=== PATIENT | female | born 1945 | race African-American/Black ===

== ENCOUNTER 2021-07-04 22:49 | Inpatient (IN) | payer MEDICARE, OTHER ==
[2021-07-05] MEDS ORDERED: Ondansetron PF 4 MG/2 ML Vial IVP PRN (00:07)
[2021-07-05 00:08] LABS: Actual Bicarbonate (HCO3a) 43.9 mEq/L (22-28); Base Excess (BEa) 10.2 mEq/L (-2.0 to +3.0); Calcium, Ionized (arterial) 1.22 mmol/L (1.12-1.30); Carboxyhemoglobin (COHb) 1.3 gm% (0.0-3.0); Hemoglobin (Hb) 11.5 g/dL (12.0-16.0); O2 Tension (PaO2), arterial 274.6 mmHg (> 70.0); Potassium - ABG Lab 3.67 mmol/L (3.70-5.30)
[2021-07-05] MEDS ORDERED: Morphine 4 MG/ML VIAL SLOW IVP PRN (00:15)
[2021-07-05] MEDS ORDERED: Ventilator Sedation Protocol 1 EACH FS SCH (00:15)
[2021-07-05] MEDS ORDERED: Fentanyl CADD 100 ML IV SCH (00:15)
[2021-07-05] MEDS ORDERED: Fentanyl BOLUS 250 ML IVPB PRN (00:15)
[2021-07-05] MEDS ORDERED: Lorazepam 2 MG/ML VIAL SLOW IVP PRN (00:15)
[2021-07-05] MEDS ORDERED: Propofol BOLUS 1,000 MG/100 ML VIAL IV PRN (00:15)
[2021-07-05] MEDS ORDERED: DISCONTINUE PREVIOUS NARCOTIC PAIN MEDICATIONS AND BENZODIAZEPINES FS SCH (00:15)
[2021-07-05] MEDS ORDERED: Propofol 1,000 MG/100 ML VIAL IV PRN (00:15)
[2021-07-05] MEDS ORDERED: Morphine 2 MG/ML VIAL SLOW IVP PRN (00:18)
[2021-07-05] MEDS ORDERED: fentaNYL Citrate-0.9 % NaCl/PF 100 ML IV SCH (00:30)
[2021-07-05] MEDS ORDERED: methylPREDNISolone Sod Succ/PF 125 MG/2 ML VIAL IVP SCH (00:30)
[2021-07-05 00:52] LABS: pH, Arterial 7.11 (7.35-7.45)
[2021-07-05 00:53] LABS: ALV-art Gradient 261.525 mmHg (0-20); CO2 Tension 141.5 mmHg (35.0-45.0); Puncture Site LRA
[2021-07-05] MEDS: Cefepime 1 GM in Sodium Chloride 0.9% 100 ML IVPB SCH ×2 (01:01→12:26)
[2021-07-05 01:34] LABS: Actual Bicarbonate (HCO3a) 31.7 mEq/L (22-28); Base Excess (BEa) 6.8 mEq/L (-2.0 to +3.0); CO2 Tension 46.6 mmHg (35.0-45.0); Calcium, Ionized (arterial) 1.09 mmol/L (1.12-1.30); Hemoglobin (Hb) 10.5 g/dL (12.0-16.0); O2 Tension (PaO2), arterial 168.3 mmHg (> 70.0); Potassium - ABG Lab 3.62 mmol/L (3.70-5.30); pH, Arterial 7.45 (7.35-7.45)
[2021-07-05 01:59] LABS: Puncture Site LRA
[2021-07-05 02:06] LABS: Amphetamine Not Detected (NotDetected); Barbiturates Screen Not Detected (NotDetected); Benzodiazepine Screen Not Detected (NotDetected); Cocaine Metabolite Screen Not Detected (NotDetected); Methadone Not Detected (NotDetected); Methamphetamine Not Detected (NotDetected); Opiate Screen Not Detected (NotDetected); Oxycodone Screen Not Detected (NotDetected); Phencyclidine (PCP) Not Detected (NotDetected); THC/Cannabinoid Screen Not Detected (NotDetected); Tricyclic Screen Not Detected (NotDetected)
[2021-07-05 03:59] LABS: #Lymphocytes 0.6 thou/uL (1.20-3.40); #Monocytes 0.4 thou/uL (0.11-0.59); #Neutrophils 2.9 thou/uL (1.40-6.50); %Lymphocytes 14.5 % (21.0-51.0); %Monocytes 9.3 % (0.0-10.0); %Neutrophils 76.2 % (42.0-75.0); Hemoglobin 10.6 g/dL (12.0-16.0); Mean Corpuscular HGB CONC 29.9 g/dL (32.0-36.0); Mean Corpuscular Hemoglobin 31.2 pg (27.0-31.0); Mean Platelet Volume 7.5 fL (7.4-10.4); Platelet Count 250 thou/uL (130-400); RBC Distribution Width 19.1 % (11.5-14.5); Red Blood Cell (RBC) Count 3.38 mill/uL (4.20-5.40); White Blood Cell (WBC) Count 3.8 thou/uL (4.8-10.8)
[2021-07-05 04:27] LABS: ALT (SGPT) 23 U/L (8-55); AST (SGOT) 25 U/L (5-34); Albumin 2.9 g/dL (3.4-4.8); Alkaline Phosphatase 57 U/L (40-110); Anion Gap 21 mmol/L (10-20); BUN (Urea Nitrogen) 18 mg/dL (9.8-20.1); Bilirubin, Total 0.9 mg/dL (0.2-1.2); Calc. Creatinine Clearance 30 mL/min (70-130); Calcium 8.9 mg/dL (7.8-10.44); Carbon Dioxide 28 mmol/L (23-31); Chloride 96 mmol/L (98-107); Globulin 4.8 g/dL (2.4-3.5); Glucose 105 mg/dL (83-110); Magnesium 1.7 mg/dL (1.6-2.6); Potassium 4.2 mmol/L (3.5-5.1); Protein, Total 7.7 g/dL (5.8-8.1); Sodium 141 mmol/L (136-145)
[2021-07-05] MEDS: methylPREDNISolone Sod Succ 40 MG VIAL IVP SCH ×3 (05:34→17:59)
[2021-07-05] MEDS ORDERED: Sodium Chloride 0.9% 1,000 ML IV SCH ×2 (06:00→09:28)
[2021-07-05] MEDS: Enoxaparin Sodium 30 MG/0.3 ML SYRINGE SC SCH (08:37)
[2021-07-05] MEDS: Famotidine 20 MG TAB PO SCH ×2 (08:38→20:45)
[2021-07-05] MEDS: Acetaminophen 325 MG TAB PO PRN (08:38)
[2021-07-05] MEDS: Azithromycin 250 MG in Sodium Chloride 0.9% 250 ML 250 ML IVPB SCH (10:35)
[2021-07-05] MEDS ORDERED: Alendronate Sodium 70 mg Tablet PO SCH (12:00)
[2021-07-05] MEDS ORDERED: Lactated Ringer's 500 ML IV SCH (13:30)
[2021-07-05] MEDS ORDERED: Succinylcholine 200 MG/10 ml SYRINGE FS ONE (13:41)
[2021-07-05] MEDS: Sodium Chloride 0.9% 1,000 ML IV SCH (14:25)
[2021-07-05] MEDS: Atorvastatin Calcium 10 MG TAB PO SCH (20:45)
[2021-07-05] MEDS ORDERED: Simvastatin 20 MG TAB PO SCH (21:00)
[2021-07-06] MEDS: methylPREDNISolone Sod Succ 40 MG VIAL IVP SCH ×4 (00:15→20:05)
[2021-07-06] MEDS: Cefepime 1 GM in Sodium Chloride 0.9% 100 ML IVPB SCH (00:21)
[2021-07-06] MEDS: Sodium Chloride 0.9% 1,000 ML IV SCH ×2 (03:31→14:01)
[2021-07-06 04:30] LABS: ALT (SGPT) 17 U/L (8-55); AST (SGOT) 19 U/L (5-34); Albumin 2.5 g/dL (3.4-4.8); Alkaline Phosphatase 54 U/L (40-110); Anion Gap 12 mmol/L (10-20); BUN (Urea Nitrogen) 36 mg/dL (9.8-20.1); Bilirubin, Total 0.4 mg/dL (0.2-1.2); Calc. Creatinine Clearance 25 mL/min (70-130); Calcium 7.9 mg/dL (7.8-10.44); Carbon Dioxide 28 mmol/L (23-31); Chloride 102 mmol/L (98-107); Globulin 4.4 g/dL (2.4-3.5); Glucose 173 mg/dL (83-110); Magnesium 1.7 mg/dL (1.6-2.6); Potassium 3.6 mmol/L (3.5-5.1); Protein, Total 6.9 g/dL (5.8-8.1); Sodium 138 mmol/L (136-145)
[2021-07-06 04:36] LABS: Band 23 % (5-11); Lymphocytes 4 % (21-51); MDiff Complete? YES; Macrocytosis SLIGHT = 6-15 cells (100X) (0-5/hpf); Monocytes 10 % (0-10); Neutrophil 61 % (42-75); Platelet Morphology Comment Appears Adequate; Reactive Lymphocytes 2 % (0-10)
[2021-07-06 04:37] LABS: Hemoglobin 8.9 g/dL (12.0-16.0); Mean Corpuscular HGB CONC 29.8 g/dL (32.0-36.0); Mean Corpuscular Hemoglobin 30.4 pg (27.0-31.0); Mean Platelet Volume 7.7 fL (7.4-10.4); Platelet Count 253 thou/uL (130-400); RBC Distribution Width 19.8 % (11.5-14.5); Red Blood Cell (RBC) Count 2.92 mill/uL (4.20-5.40); White Blood Cell (WBC) Count 6.3 thou/uL (4.8-10.8)
[2021-07-06] MEDS: Famotidine 20 MG TAB PO SCH (08:26)
[2021-07-06] MEDS: Enoxaparin Sodium 30 MG/0.3 ML SYRINGE SC SCH (08:26)
[2021-07-06] MEDS: Ferrous Sulfate 325 MG TAB PO SCH (08:26)
[2021-07-06] MEDS ORDERED: Non-Formulary Item 1 EACH (Ferrous Sulfate [Ferrous Sulfate] 325 MG Tablet) PO SCH (09:00)
[2021-07-06] MEDS: Azithromycin 250 MG in Sodium Chloride 0.9% 250 ML 250 ML IVPB SCH (13:48)
[2021-07-06] MEDS: Atorvastatin Calcium 10 MG TAB PO SCH (20:05)
[2021-07-06] MEDS: Acetaminophen 325 MG TAB PO PRN (20:08)
[2021-07-07 03:53] LABS: #Lymphocytes 0.4 thou/uL (1.20-3.40); #Monocytes 0.3 thou/uL (0.11-0.59); %Lymphocytes 7.2 % (21.0-51.0); %Monocytes 4.4 % (0.0-10.0); %Neutrophils 88.4 % (42.0-75.0); Hemoglobin 9.3 g/dL (12.0-16.0); Mean Corpuscular HGB CONC 29.9 g/dL (32.0-36.0); Mean Corpuscular Hemoglobin 30.6 pg (27.0-31.0); Mean Platelet Volume 7.4 fL (7.4-10.4); Platelet Count 268 thou/uL (130-400); RBC Distribution Width 19.8 % (11.5-14.5); Red Blood Cell (RBC) Count 3.05 mill/uL (4.20-5.40); White Blood Cell (WBC) Count 5.7 thou/uL (4.8-10.8)
[2021-07-07 04:05] LABS: ALT (SGPT) 18 U/L (8-55); AST (SGOT) 16 U/L (5-34); Albumin 2.7 g/dL (3.4-4.8); Alkaline Phosphatase 51 U/L (40-110); Anion Gap 13 mmol/L (10-20); BUN (Urea Nitrogen) 33 mg/dL (9.8-20.1); Bilirubin, Total 0.3 mg/dL (0.2-1.2); Calc. Creatinine Clearance 38 mL/min (70-130); Calcium 7.9 mg/dL (7.8-10.44); Carbon Dioxide 26 mmol/L (23-31); Chloride 106 mmol/L (98-107); Globulin 4.5 g/dL (2.4-3.5); Glucose 115 mg/dL (83-110); Magnesium 1.9 mg/dL (1.6-2.6); Potassium 4.1 mmol/L (3.5-5.1); Protein, Total 7.2 g/dL (5.8-8.1); Sodium 141 mmol/L (136-145)
[2021-07-07] MEDS: Sodium Chloride 0.9% 1,000 ML IV SCH (06:10)
[2021-07-07] MEDS ORDERED: Famotidine 20 MG TAB PO SCH (09:00)
[2021-07-07] MEDS: Enoxaparin Sodium 30 MG/0.3 ML SYRINGE SC SCH (09:41)
[2021-07-07] MEDS: Ferrous Sulfate 325 MG TAB PO SCH (09:41)
[2021-07-07] MEDS: Azithromycin 250 MG in Sodium Chloride 0.9% 250 ML 250 ML IVPB SCH (09:42)
[2021-07-07] MEDS: methylPREDNISolone Sod Succ 40 MG VIAL IVP SCH ×2 (09:42→20:22)
[2021-07-07] MEDS ORDERED: methylPREDNISolone Sod Succ 40 MG VIAL IVP SCH (11:00)
[2021-07-07] MEDS: Acetaminophen 325 MG TAB PO PRN (11:55)
[2021-07-07] MEDS ORDERED: hydrALAZINE 20 MG/ML VIAL SLOW IVP PRN (15:41)
[2021-07-07] MEDS: Atorvastatin Calcium 10 MG TAB PO SCH (20:22)
[2021-07-08] MEDS: methylPREDNISolone Sod Succ 40 MG VIAL IVP SCH ×2 (09:15→21:00)
[2021-07-08] MEDS: Ferrous Sulfate 325 MG TAB PO SCH (09:15)
[2021-07-08] MEDS: Enoxaparin Sodium 30 MG/0.3 ML SYRINGE SC SCH (09:16)
[2021-07-08] MEDS: Azithromycin 250 MG in Sodium Chloride 0.9% 250 ML 250 ML IVPB SCH (09:20)
[2021-07-08 14:20] VITALS: BMI 14.4
[2021-07-08] MEDS: Acetaminophen 325 MG TAB PO PRN (16:57)
[2021-07-08] MEDS: Atorvastatin Calcium 10 MG TAB PO SCH (21:00)
[2021-07-09 06:50] LABS: #Monocytes 0.8 thou/uL (0.11-0.59); #Neutrophils 4.9 thou/uL (1.40-6.50); %Basophils 0.4 % (0.0-1.0); %Eosinophils 0.1 % (0.0-10.0); %Lymphocytes 14.9 % (21.0-51.0); %Neutrophils 72.6 % (42.0-75.0); Hemoglobin 9.9 g/dL (12.0-16.0); Mean Corpuscular HGB CONC 29.5 g/dL (32.0-36.0); Mean Platelet Volume 7.6 fL (7.4-10.4); Platelet Count 253 thou/uL (130-400); RBC Distribution Width 19.6 % (11.5-14.5); Red Blood Cell (RBC) Count 3.29 mill/uL (4.20-5.40); White Blood Cell (WBC) Count 6.7 thou/uL (4.8-10.8)
[2021-07-09 06:57] LABS: Anion Gap 10 mmol/L (10-20); BUN (Urea Nitrogen) 19 mg/dL (9.8-20.1); Calc. Creatinine Clearance 54 mL/min (70-130); Calcium 8.3 mg/dL (7.8-10.44); Carbon Dioxide 30 mmol/L (23-31); Chloride 107 mmol/L (98-107); Glucose 86 mg/dL (83-110); Potassium 3.9 mmol/L (3.5-5.1); Sodium 143 mmol/L (136-145)
[2021-07-09] MEDS: Ferrous Sulfate 325 MG TAB PO SCH (09:38)
[2021-07-09] MEDS: methylPREDNISolone Sod Succ 40 MG VIAL IVP SCH ×2 (09:38→22:21)
[2021-07-09] MEDS: Enoxaparin Sodium 30 MG/0.3 ML SYRINGE SC SCH (09:38)
[2021-07-09] MEDS: Azithromycin 250 MG in Sodium Chloride 0.9% 250 ML 250 ML IVPB SCH (09:42)
[2021-07-09] MEDS: Atorvastatin Calcium 10 MG TAB PO SCH (22:21)
[2021-07-10 06:36] LABS: Mean Corpuscular HGB CONC 29.3 g/dL (32.0-36.0); Mean Corpuscular Hemoglobin 30.1 pg (27.0-31.0); Mean Platelet Volume 7.5 fL (7.4-10.4); Platelet Count 229 thou/uL (130-400); Red Blood Cell (RBC) Count 3.31 mill/uL (4.20-5.40); White Blood Cell (WBC) Count 5.2 thou/uL (4.8-10.8)
[2021-07-10 06:45] LABS: Anion Gap 11 mmol/L (10-20); BUN (Urea Nitrogen) 14 mg/dL (9.8-20.1); Calc. Creatinine Clearance 56 mL/min (70-130); Calcium 8.4 mg/dL (7.8-10.44); Carbon Dioxide 35 mmol/L (23-31); Chloride 100 mmol/L (98-107); Glucose 125 mg/dL (83-110); Sodium 142 mmol/L (136-145)
[2021-07-10 07:12] LABS: #Lymphocytes 0.6 thou/uL (1.20-3.40); #Monocytes 0.3 thou/uL (0.11-0.59); #Neutrophils 4.3 thou/uL (1.40-6.50); %Basophils 0.3 % (0.0-1.0); %Eosinophils 0.2 % (0.0-10.0); %Lymphocytes 10.6 % (21.0-51.0); %Monocytes 6.1 % (0.0-10.0); %Neutrophils 82.8 % (42.0-75.0)
[2021-07-10] MEDS: methylPREDNISolone Sod Succ 40 MG VIAL IVP SCH (07:50)
[2021-07-10] MEDS: Enoxaparin Sodium 30 MG/0.3 ML SYRINGE SC SCH (07:50)
[2021-07-10] MEDS: Ferrous Sulfate 325 MG TAB PO SCH (07:50)
[2021-07-10 08:26] VITALS: BP 152/78; TEMP 97.4
[2021-07-10] MEDS ORDERED: predniSONE 20 MG TAB PO SCH (09:00)
== END 2021-07-10 14:53 | DRG 208 ==
LOC: CCU 07-05 00:03 → T4-B 07-07 12:38
PROVIDERS: ADMIT Internal Medicine; ATTEND Internal Medicine
PROC: 5A1935Z Respiratory Ventilation, Less than 24 Consecutive Hours (ICD-10-PCS; principal; 2021-07-05)
PROC: 0BH17EZ Insertion of Endotracheal Airway into Trachea, Via Natural or Artificial Opening (ICD-10-PCS; 2021-07-05)
PROC: 5A09357 Assistance with Respiratory Ventilation, Less than 24 Consecutive Hours, Continuous Positive Airway Pressure (ICD-10-PCS; 2021-07-06)
PROC: 0DH67UZ Insertion of Feeding Device into Stomach, Via Natural or Artificial Opening (ICD-10-PCS; 2021-07-08)
PROC: 3E0G76Z Introduction of Nutritional Substance into Upper GI, Via Natural or Artificial Opening (ICD-10-PCS; 2021-07-08)
DX: J96.21 Acute and chronic respiratory failure with hypoxia (principal); G93.41 Metabolic encephalopathy; J44.1 Chronic obstructive pulmonary disease with (acute) exacerbation; E87.2 Acidosis; R64 Cachexia; Z68.1 Body mass index [BMI] 19.9 or less, adult; Z20.822 Contact with and (suspected) exposure to COVID-19; J96.22 Acute and chronic respiratory failure with hypercapnia; I10 Essential (primary) hypertension; E78.5 Hyperlipidemia, unspecified; D50.9 Iron deficiency anemia, unspecified; E88.09 Other disorders of plasma-protein metabolism, not elsewhere classified; Z88.5 Allergy status to narcotic agent; Z78.1 Physical restraint status; Z79.899 Other long term (current) drug therapy; Z79.51 Long term (current) use of inhaled steroids; Z83.3 Family history of diabetes mellitus; Z98.890 Other specified postprocedural states; Z87.891 Personal history of nicotine dependence
CPT/HCPCS: 36415; 36600; 71045; 74018; 80048; 80053; 80306; 82805; 83735; 85025; 87040; 94002; 94003; 94640; 94660; J0456; J0692; J1650; J2060; J2704; J2920; J2930; J3490; J7050; J7120; J7512; J7620

== ENCOUNTER 2021-07-30 13:45 | Emergency (ER) | payer MEDICARE, OTHER ==
[2021-07-30 14:46] LABS: #Lymphocytes 1.2 thou/uL (1.20-3.40); #Monocytes 0.3 thou/uL (0.11-0.59); #Neutrophils 2.4 thou/uL (1.40-6.50); %Eosinophils 0.3 % (0.0-10.0); %Lymphocytes 30.1 % (21.0-51.0); %Monocytes 7.9 % (0.0-10.0); %Neutrophils 61.7 % (42.0-75.0); Hemoglobin 10.5 g/dL (12.0-16.0); Mean Corpuscular HGB CONC 29.9 g/dL (32.0-36.0); Mean Corpuscular Hemoglobin 32.3 pg (27.0-31.0); Mean Platelet Volume 7.6 fL (7.4-10.4); Platelet Count 273 thou/uL (130-400); RBC Distribution Width 20.9 % (11.5-14.5); Red Blood Cell (RBC) Count 3.27 mill/uL (4.20-5.40); White Blood Cell (WBC) Count 3.8 thou/uL (4.8-10.8)
[2021-07-30 15:05] LABS: Anisocytosis SLIGHT = 6-15 cells (100X) (0-5/hpf); Basophilic Stippling SLIGHT = 1-2 cells (100X) (None Seen); Hypochromia SLIGHT = 6-15 cells (100X) (0-5/hpf); MDiff Complete? YES; Macrocytosis SLIGHT = 6-15 cells (100X) (0-5/hpf); Ovalocytes SLIGHT = 2-5 cells (100X) (0-1/hpf); Platelet Morphology Comment Appears Adequate; Polychromasia SLIGHT = 2-3 cells (100X) (0-2/hpf)
[2021-07-30 15:21] LABS: ALT (SGPT) 28 U/L (8-55); AST (SGOT) 20 U/L (5-34); Alkaline Phosphatase 54 U/L (40-110); Anion Gap 16 mmol/L (10-20); BUN (Urea Nitrogen) 15 mg/dL (9.8-20.1); Bilirubin, Total 0.3 mg/dL (0.2-1.2); Calc. Creatinine Clearance 0 mL/min (70-130); Carbon Dioxide 33 mmol/L (23-31); Chloride 99 mmol/L (98-107); Glucose 89 mg/dL (83-110); Sodium 143 mmol/L (136-145)
[2021-07-30] MEDS ORDERED: Furosemide 40 MG TAB ONE (16:12)
[2021-07-30] MEDS ORDERED: Polyethylene Glycol 3350 17 GM Packet PO SCH (17:45)
== END 2021-07-30 17:00 | disposition home or self-care (01) ==
LOC: ERS 13:45
DX: R60.0 Localized edema (principal); D64.9 Anemia, unspecified; I10 Essential (primary) hypertension; J44.9 Chronic obstructive pulmonary disease, unspecified; E78.5 Hyperlipidemia, unspecified; Z79.51 Long term (current) use of inhaled steroids; Z79.899 Other long term (current) drug therapy
CPT/HCPCS: 36415; 71045; 80053; 83880; 84484; 85025; 93005

== ENCOUNTER 2021-12-10 12:00 | Emergency (ER) | payer OTHER ==
[2021-12-10 13:19] LABS: #Lymphocytes 1.1 thou/uL (1.20-3.40); #Monocytes 0.4 thou/uL (0.11-0.59); #Neutrophils 4.5 thou/uL (1.40-6.50); %Basophils 0.5 % (0.0-1.0); %Eosinophils 0.1 % (0.0-10.0); %Lymphocytes 18.8 % (21.0-51.0); %Monocytes 6.9 % (0.0-10.0); %Neutrophils 73.8 % (42.0-75.0); Hemoglobin 11.3 g/dL (12.0-16.0); Mean Corpuscular HGB CONC 31.8 g/dL (32.0-36.0); Mean Corpuscular Hemoglobin 32.6 pg (27.0-31.0); Mean Platelet Volume 7.7 fL (7.4-10.4); Platelet Count 304 thou/uL (130-400); RBC Distribution Width 19.2 % (11.5-14.5); Red Blood Cell (RBC) Count 3.46 mill/uL (4.20-5.40); White Blood Cell (WBC) Count 6.1 thou/uL (4.8-10.8)
[2021-12-10 13:52] LABS: ALT (SGPT) 18 U/L (8-55); AST (SGOT) 24 U/L (5-34); Albumin 3.3 g/dL (3.4-4.8); Alkaline Phosphatase 65 U/L (40-110); Anion Gap 17 mmol/L (10-20); BUN (Urea Nitrogen) 27 mg/dL (9.8-20.1); Bilirubin, Total 0.4 mg/dL (0.2-1.2); Calc. Creatinine Clearance 0 mL/min (70-130); Calcium 9.7 mg/dL (7.8-10.44); Carbon Dioxide 24 mmol/L (23-31); Chloride 100 mmol/L (98-107); Estimated GFR 94; Globulin 4.5 g/dL (2.4-3.5); Glucose 97 mg/dL (83-110); Lipase 18 U/L (8-78); Potassium 5.1 mmol/L (3.5-5.1); Protein, Total 7.8 g/dL (5.8-8.1); Sodium 136 mmol/L (136-145)
[2021-12-10] MEDS ORDERED: Lidocaine Viscous Sol 2% 15 ml UD Cup ONE (13:58)
[2021-12-10 15:10] LABS: Bacteria/HPF 2+ HPF (None Seen); Bilirubin Negative (Negative); Blood, Urine Negative (Negative); Clarity Turbid (Clear); Glucose, Urine (Dipstick) Normal (Negative); Ketone, Urine Negative (Negative); Leukocyte 500 Leu/uL (Negative); Nitrite 2+ (Negative); Protein, Urine (Dipstick) Negative (Neg-Trace); RBC/HPF None Seen HPF (0-3); Specific Gravity, Urine 1.014 (1.002-1.036); Squamous Epithelial None Seen HPF (0-3); Urobilinogen Normal mg/dL (Less than 2); WBC/HPF 21-50 HPF (0-3); Yeast-Budding 3+ HPF (None Seen); Yeast-Hyphae 1+ HPF (None Seen); pH, Urine 8.5 (5.0-9.0)
[2021-12-10] MEDS ORDERED: Glycerin Adult Supp. (24 ct jar) RC SCH (15:15)
[2021-12-10] MEDS ORDERED: Glycerin Adult Supp. (12 ct jar) ONE (15:15)
[2021-12-10] MEDS ORDERED: Mineral Oil ENEMA PR SCH (16:15)
== END 2021-12-10 19:16 ==
LOC: ERS 12:00
DX: K56.41 Fecal impaction (principal); N39.0 Urinary tract infection, site not specified; I10 Essential (primary) hypertension; E78.5 Hyperlipidemia, unspecified
CPT/HCPCS: 36415; 80053; 81003; 81015; 83690; 85025; 87086; 93005

== ENCOUNTER 2022-01-07 18:12 | Emergency (ER) | payer OTHER ==
[2022-01-07] MEDS ORDERED: Fleet Enema 133 ML BOT PR SCH (19:15)
== END 2022-01-08 02:19 ==
LOC: ERS 18:12
DX: K59.00 Constipation, unspecified (principal); K56.0 Paralytic ileus; J44.9 Chronic obstructive pulmonary disease, unspecified; I10 Essential (primary) hypertension; E78.00 Pure hypercholesterolemia, unspecified; K21.9 Gastro-esophageal reflux disease without esophagitis; Z79.899 Other long term (current) drug therapy
CPT/HCPCS: 99283